=== PATIENT | female | born 1950 | race African-American/Black ===

== ENCOUNTER 2020-06-24 13:57 | Outpatient (CLI) | payer MEDICARE, OTHER | END 2020-06-24 13:58 | disposition home or self-care (01) | LOC: DTY/OP 13:57 | PROVIDERS: ATTEND Nurse Practitioner Adult Health | DX: E11.9 Type 2 diabetes mellitus without complications (principal) | CPT/HCPCS: 97802 ==

== ENCOUNTER 2021-01-19 14:50 | Outpatient (CLI) | payer MEDICARE | END 2021-01-19 14:51 | disposition home or self-care (01) | LOC: BICRAD 14:50 | PROVIDERS: ATTEND Student in an Organized Health Care Education/Training Program | DX: M25.551 Pain in right hip (principal); M54.5 Low back pain; M47.816 Spondylosis without myelopathy or radiculopathy, lumbar region; M16.11 Unilateral primary osteoarthritis, right hip; M43.16 Spondylolisthesis, lumbar region; M48.061 Spinal stenosis, lumbar region without neurogenic claudication | CPT/HCPCS: 72100 ==

== ENCOUNTER 2021-03-02 13:53 | Outpatient (CLI) | payer MEDICARE | END 2021-03-02 13:54 | disposition home or self-care (01) | LOC: BICRAD 13:53 | PROVIDERS: ATTEND Student in an Organized Health Care Education/Training Program | DX: M25.561 Pain in right knee (principal); M25.562 Pain in left knee; M17.0 Bilateral primary osteoarthritis of knee ==